=== PATIENT | female | born 1940 | race Caucasian/White ===

== ENCOUNTER → 2020-09-03 | Outpatient (CLI) | payer OTHER | LOC: HYPER 08:19 | PROVIDERS: ATTEND Internal Medicine | DX: S61.202A Unspecified open wound of right middle finger without damage to nail, initial encounter (principal); L03.011 Cellulitis of right finger; A49.01 Methicillin susceptible Staphylococcus aureus infection, unspecified site; R60.0 Localized edema; E11.628 Type 2 diabetes mellitus with other skin complications; E11.22 Type 2 diabetes mellitus with diabetic chronic kidney disease; I13.0 Hypertensive heart and chronic kidney disease with heart failure and stage 1 through stage 4 chronic kidney disease, or unspecified chronic kidney disease; N18.9 Chronic kidney disease, unspecified; I50.9 Heart failure, unspecified; R78.81 Bacteremia; I25.10 Atherosclerotic heart disease of native coronary artery without angina pectoris; I27.21 Secondary pulmonary arterial hypertension; Z79.4 Long term (current) use of insulin; Z86.73 Personal history of transient ischemic attack (TIA), and cerebral infarction without residual deficits; X58.XXXA Exposure to other specified factors, initial encounter; Y93.89 Activity, other specified; Y92.89 Other specified places as the place of occurrence of the external cause; Y99.8 Other external cause status ==

== ENCOUNTER → 2020-09-09 | Outpatient (CLI) | payer OTHER ==
[~2020-09-09] MED LIST: CELEXA 10 MG TA10 M1 PO; DOXEPIN 10 MG C10 M1 PO; FUROSEMIDE 20 M20 M1 PO; HAIR SKIN NAIL1 EACH PO; LEVEMIR100 UNIT/1 SUBQ; LOSARTAN POTASS50 MG PO; NORVASC 2.5 MG2.5 M1 PO; OXYBUTYNIN CHLO10 MG PO; PRAMIPEXOLE0.125 MG PO; ROSUVASTATIN CAL5 MG PO
== END ==
LOC: LAB 07:43
PROVIDERS: ATTEND Orthopaedic Surgery Hand Surgery
DX: Z12.31 Encounter for screening mammogram for malignant neoplasm of breast (principal)

== ENCOUNTER 2020-09-12 09:39 | Day surgery (SDC) | payer OTHER ==
[~2020-09-12] VITALS: Ht 152.4 cm; Wt 72.6 kg
--- NOTE | ~2020-09-12 | O ---
[facility] [place] [address] OPERATIVE REPORT Name: KRISTY MATTSON Room #: 150-3 [facility]..#: [id number] Admission: 09/12/20 Attend Phys: Aurea Saini, Discharge: Date of : 42 Report #: [id number] THIS REPORT FOR: cc: Jasper Puga MD, Ted J. MD Deardorff, Valerie A. 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 PROCEDURE PERFORMED: Right long finger incision and debridement of skin, subcutaneous tissue, and bone with wound repair and nail excision. SURGEON: Aurea Saini MD ANESTHESIA: General mask anesthesia. ESTIMATED BLOOD LOSS: Minimal. TOURNIQUET TIME: On the forearm was 14 minutes. COMPLICATIONS: None. CONDITION: Stable. DISPOSITION: Recovery room. INDICATIONS: The patient is a 80-year-old female with the above-mentioned diagnosis. She elects for operative treatment. The risks, benefits, alternatives, and complications were discussed including, but not limited to, infection, damage to vessels or nerves, incomplete relief or worsening of any symptoms, and inability to completely resolve the infection requiring more surgery. We also discussed possibility of abnormal nail growth causing pain and possibly requiring more surgery, infection, wound healing problems, or pain were also discussed. Her was at the bedside and they discussed that if intraoperative findings show a significant amount of infection and if my recommendation would be strongly for amputation, that I would call them intraoperatively. This obviously was not the case. Informed consent was obtained. The correct extremity was identified and labeled by myself after verbal confirmation of the patient as well as visual confirmation and signed informed consent. DESCRIPTION OF PROCEDURE: The patient was brought back to the operating room [address] [address] OPERATIVE REPORT Name: KRISTY MATTSON Room #: 150-3 [facility].#: [id number] Admission: 09/12/20 Attend Phys: Aurea Saini, Discharge: Date of : 41 Report #: [id number] and placed on the operating table in the supine position. She received antibiotics after the tourniquet was deflated. The right upper extremity was sterilely prepped and draped in the usual fashion. Final timeout was taken to verify correct patient, operative procedure, and operative site, all concurred. The arm was elevated, but was not exsanguinated, and the tourniquet was inflated. Next, a transverse incision was made at the volar aspect of the eschar. There was a large eschar at the distal end of the nail measuring approximately 5 mm x 1 cm. It was excised. Once this was excised, I was able to dissect down to the bone sharply. The bone looked to be in fairly good condition. A rongeur was used to clean up any rough edges and any unhealthy tissue was debrided as well. At this point, I evaluated the ability to close the wound without excision of the nail tissue. It would have been very difficult to close the wound. There would have been significant tension on the wound, which would have potentially decreased healing. So, sharply, the nail tissue was excised. The wound was then thoroughly irrigated with antibiotic saline prior to performing this swab and tissue was sent to microbiology. Once the wound was thoroughly irrigated, the wound was closed with 4-0 nylon suture. The tourniquet was deflated. The finger was pink with brisk capillary refill. The wound was dressed with Xeroform and sterile gauze. All fingers were pink with brisk capillary refill at the conclusion of case after deflation of tourniquet. All sponge and needle counts were correct. The patient was transferred to postoperative recovery room in stable condition. By: 1507 1528 Aurea Saini MD /cristy
--- NOTE | 2020-09-12 10:56 | NUR ---
CONSULTED TO PLACE A PICC FOR A PATIENT- PRE-OP. A CONSENT WAS OBTAINED AFTER A DISCUSSION OF RISK VS BENIFITS AND SHE VERBALIZED UNDERSTANDING. THE RIGHT UPPER ARM BASILIC WAS WIDLEY PATIENT. A #4F SINGLE LUMEN PICC WAS PLACED PER HOSPITAL POLICY AFTER A BEDSIDE TIMEOUT WAS COMPLETED. THE VEIN VS CATHETER RATIO WAS 24%. THE LINE WAS TRIMMED TO 42CM AND ADVANCED WITHOUT DIFFICULTY. LINE WAS CONFIRMED AT THE CAVOATRIAL JUNCTION USING SHERLOCK 3CG TECHNOLOGY, DOCUMENTED AND PLACED ON THE CHART. LINE WAS RELEASED FOR IMMEDIATE USE
[2020-09-12 11:02] VITALS: BP 142/86
[2020-09-12 11:18] LABS: HEMATOCRIT 36.4 % (37.0-47.0); HEMOGLOBIN 12.2 gm/dL (12.0-15.0); MCH 28.9 pg (26.0-34.0); MCHC 33.4 g/dL (28.0-37.0); MCV 86.5 fL (80.0-100.0); RBC 4.21 mil/uL (4.20-5.00); RDW 14.7 % (10.5-14.5); WBC 5.3 thou/uL (4.0-11.0)
[2020-09-12 11:23] LABS: CALCIUM 9.6 mg/dL (8.5-10.1); CREATININE 1.3 mg/dL (0.6-1.0); POTASSIUM 3.8 mmol/L (3.5-5.1)
[2020-09-12 11:30] LABS: ALBUMIN 3.5 g/dL (3.4-5.0); TOTAL BILIRUBIN 0.7 mg/dL (0.2-1.0); TOTAL PROTEIN 7.1 g/dL (6.4-8.2)
[2020-09-12 14:44] VITALS: BP 142/86
== END 2020-09-12 17:05 | disposition home or self-care (01) ==
LOC: TBA 09:39 → OR 09:39 → TBA 10:08 → OR 10:38
PROVIDERS: ATTEND Orthopaedic Surgery Hand Surgery
DX: E11.69 Type 2 diabetes mellitus with other specified complication (principal); M86.8X4 Other osteomyelitis, hand; M79.644 Pain in right finger(s); M79.89 Other specified soft tissue disorders; I10 Essential (primary) hypertension; E78.5 Hyperlipidemia, unspecified; F32.9 Major depressive disorder, single episode, unspecified; Z98.890 Other specified postprocedural states; Z79.899 Other long term (current) drug therapy; Z79.4 Long term (current) use of insulin; Z86.73 Personal history of transient ischemic attack (TIA), and cerebral infarction without residual deficits
CPT/HCPCS: 27000; 50010; 50101; 50386; 56526; 57006; 57091; 57178; 62110; 62900; 70005

== ENCOUNTER → 2021-02-07 | Outpatient (CLI) | payer OTHER ==
[~2021-02-07] MED LIST changes: +APAP650 PO; +BIOTIN1 M1 PO; +LANTUS100 UNIT/M SUBQ; +LONG ACTING NAS15 ML NASAL; +LOOMIS ENZYMES PO
[2021-02-07 09:34] LABS: PROTIME 10.9 Seconds (10.5-12.1)
[2021-02-07 09:34] LABS: URINE BILIRUBIN NEGATIVE (Negative); URINE BLOOD TRACE (Negative); URINE CLARITY CLEAR; URINE COLOR YELLOW; URINE GLUCOSE-RANDOM* NEGATIVE (Negative); URINE KETONES NEGATIVE (Negative); URINE NITRITE-REFLEX NEGATIVE (Negative); URINE PROTEIN (DIPSTICK) TRACE (Negative); URINE SPECIFIC GRAVITY <= 1.005 (1.005-1.035); URINE UROBILINOGEN 0.2 E.U./dl (0.2-1.0)
[2021-02-07 09:37] LABS: URINE LEUKOCYTES-REFLEX 3+ (Negative)
[2021-02-07 09:56] LABS: SQUAMOUS 4-10 Moderate /LPF (0-3)
[2021-02-07 09:57] LABS: CASTS None Seen /LPF (None Seen); RENAL EPITHELIAL CELLS 0-3 Few /LPF (None Seen)
[2021-02-07 09:58] LABS: BACTERIA-REFLEX 1-9 Few /HPF (None Seen); CRYSTALS None Seen /LPF (None Seen); URINE RBC 1-2 Rare /HPF (NONE SEEN)
--- NOTE | 2021-02-07 16:11 | EKG ---
[place] [address] [facility] [place] [address] ELECTROCARDIOGRAM REPORT Name: KRISTY MATTSON Room #: [facility]#: [id number] Admission: 02/07/21 Attend Phys: Agus Phillips MD Discharge: Date of : 41 Report #: [id number] [facility] Test Date: 2021-02-07 Test Time: 09:13:45 Pat Name: KRISTY MATTSON Department: Room: Gender: F Route Salesman And Driver: JUAN ALBERTO BURLESON : 1940 Requested By: Agus Phillips Order Number: [id number] MD: Giovanni Escobedo Measurements Intervals [place] Rate: 45 P: [place]: QRS: 134 QRSD: 182 T: -24 QT: 487 QTc: 422 Interpretive Statements Junctional rhythm RBBB Repol abnrm suggests ischemia, diffuse leads No previous ECG available for comparison Electronically Signed On 02-07-2021 16:11:26 CDT by Giovanni Escobedo [email or web address] <ELECTRONICALLY SIGNED> By: Giovanni Escobedo MD, [facility] 02/07/21 1611 0913 2 Giovanni Escobedo MD, FACPhoenix /EPI
== END ==
LOC: PAC 08:39
PROVIDERS: ATTEND Orthopaedic Surgery
DX: Z01.812 Encounter for preprocedural laboratory examination (principal); Z01.810 Encounter for preprocedural cardiovascular examination; M17.12 Unilateral primary osteoarthritis, left knee; E11.9 Type 2 diabetes mellitus without complications; I10 Essential (primary) hypertension; Z91.048 Other nonmedicinal substance allergy status

== ENCOUNTER → 2021-02-19 | Outpatient (CLI) | payer OTHER ==
--- NOTE | 2021-02-21 11:48 | HC ---
[facility] [place] [address] CONSULTATION Name: KRISTY MATTSON Room #: REG SATYA Zepeda#: [id number] Admission: 02/19/21 Attend Phys: Jen Banks DO Discharge: Date of : 41 Report #: [id number] THIS REPORT FOR: cc: Jasper Puga MD, Ted J. MD Lundgren, Craig H. MD [facility] ~ DATE OF SERVICE: 02/19/2021 REASON FOR CONSULTATION: Junctional rhythm. HISTORY OF PRESENT ILLNESS: The patient is a 80-year-old woman with hypertension and diabetes, who presents for elective left total knee replacement. She was found to be bradycardic in the postoperative setting and I have been asked to see her in this regard. She denies a prior cardiac history. No history of chest pain, pressure or heart failure symptoms. Interestingly, an EKG performed on 02/07/2021 in the preoperative setting demonstrated the same junctional rhythm with a right bundle-branch block and right posterior fascicular block. She has not been told of having specific conduction system problems or issues. There is an echocardiogram from [facility], the report of which I have reviewed that demonstrated normal left ventricular systolic function with moderate LVH. The mitral valve demonstrated mild to moderate stenosis. She tells me that this echocardiogram was done due to an infection. 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 This echocardiogram also suggested the possibility of a mitral valve vegetation on the posterior leaflet. 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 ALLERGIES: SHE IS ALLERGIC TO HYDROCHLOROTHIAZIDE. MEDICATIONS: Include amlodipine 2.5 mg daily, citalopram 10 mg daily, doxepin 10 mg at night, furosemide 20 mg daily, insulin 12.5 units at night, losartan 50 mg daily, oxybutynin, rosuvastatin 5 mg daily. PAST MEDICAL HISTORY: Past history and medical records have been reviewed and include a history of hypertension, diabetes, prior TIA in 1999, stroke in 2003, right finger infection 05/2020, mild chronic kidney disease, dyslipidemia. SOCIAL HISTORY: She is nonsmoker, nondrinker. FAMILY HISTORY: Unremarkable for premature coronary artery disease. REVIEW OF SYSTEMS: All systems negative except as that noted above. [address] [address] CONSULTATION Name: KRISTY MATTSON Room #: REG CLHeike AlexPravin#: [id number] Admission: 02/19/21 Attend Phys: Jen Banks DO Discharge: Date of : 41 Report #: [id number] PHYSICAL EXAMINATION: GENERAL: This is a pleasant elderly woman in no distress. VITAL SIGNS: Blood pressure is 107/80, heart rate of 45 and regular. She is afebrile. HEENT: There are neither xanthelasma, subcutaneous xanthomata, oral mucosal or digital cyanosis or kyphoscoliosis present. CHEST: Clear to auscultation and percussion. CARDIAC: Regular rate and rhythm with normal S1 and S2. There is 1-2/6 systolic murmur at the left sternal border. ABDOMEN: Soft and nontender. EXTREMITIES: Without cyanosis, clubbing or edema. Radial pulses are 2+. NEUROLOGIC: She is alert with a nonfocal exam. LABORATORY DATA: Sodium 144, potassium 3.8, creatinine 1.3, this is from 09/2020. White count 5.3, hemoglobin 12, hematocrit 36, platelet count 134. ASSESSMENT AND PLAN: 1. Junctional bradycardia, clinically asymptomatic. 2. Recent left total knee replacement. 3. Diabetes. 4. Hypertension. 5. Dyslipidemia. 6. Prior transient ischemic attack; stroke. RECOMMENDATIONS: 1. Thyroid function studies. 2. No specific treatment is needed for asymptomatic junctional bradycardia, this was identified preoperatively. 3. Thyroid function studies, which has been ordered. 4. Consider outpatient event recorder monitoring. Further thoughts and plans will be forthcoming based on this evaluation. Thank you for asking me to participate in her care. <ELECTRONICALLY SIGNED> By: Marcello Gooden MD, [facility] 02/21/21 1148 1643 9080 Marcello Gooden MD, FAC /nt
== END ==
LOC: LAB 11:33
PROVIDERS: ATTEND Student in an Organized Health Care Education/Training Program
DX: Z01.812 Encounter for preprocedural laboratory examination (principal); Z20.822 Contact with and (suspected) exposure to COVID-19

== ENCOUNTER 2021-02-20 06:23 | Inpatient (IN) | payer OTHER ==
[~2021-02-20] VITALS: Ht 149.9 cm; Wt 71.8 kg
[2021-02-20 07:20] VITALS: BP 136/57
[2021-02-20 14:41] VITALS: BP 135/58
[2021-02-20 16:30] VITALS: BP 107/87
[2021-02-20 17:30] VITALS: BP 107/87
[2021-02-20 19:09] LABS: ALBUMIN 3.4 g/dL (3.4-5.0); CALCIUM 9.4 mg/dL (8.5-10.1); CREATININE 1.8 mg/dL (0.6-1.0); MAGNESIUM 1.7 mg/dL (1.8-2.4); POTASSIUM 4.7 mmol/L (3.5-5.1); TOTAL BILIRUBIN 0.3 mg/dL (0.2-1.0); TOTAL PROTEIN 6.9 g/dL (6.4-8.2)
[2021-02-20 20:08] VITALS: BP 110/68
[2021-02-20 23:58] VITALS: BP 110/47
[2021-02-21 02:37] LABS: HEMATOCRIT 36.4 % (37.0-47.0); HEMOGLOBIN 12.2 gm/dL (12.0-15.0); MCH 28.2 pg (26.0-34.0); MCHC 33.4 g/dL (28.0-37.0); MCV 84.6 fL (80.0-100.0); RBC 4.31 mil/uL (4.20-5.00); RDW 15.2 % (10.5-14.5); WBC 11.4 thou/uL (4.0-11.0)
[2021-02-21 03:08] LABS: CALCIUM 9.1 mg/dL (8.5-10.1); CREATININE 2.1 mg/dL (0.6-1.0); POTASSIUM 5.1 mmol/L (3.5-5.1)
[2021-02-21 04:00] VITALS: BP 108/43
[2021-02-21 07:30] VITALS: BP 100/41
--- NOTE | 2021-02-21 09:22 | EKG ---
[address] [place] [employer] [place] [address] ELECTROCARDIOGRAM REPORT Name: KRISTY MATTSON Room #: 217-P ADM IN M.R.#: [id number] Admission: 02/20/21 Attend Phys: Agus Phillips MD Discharge: Date of : 41 Report #: [id number] [facility] Test Date: 2021-02-20 Test Time: 16:54:29 Pat Name: KRISTY MATTSON Department: Room: 217 P Gender: F Assistant Secretary: FSCHWALMICHELLE : 1940 Requested By: Sophie Interiano Order Number: [id number] MD: Humza Guerrero Measurements Intervals [place] Rate: 40 P: [place]: QRS: 137 QRSD: 160 T: -40 QT: 537 QTc: 438 Interpretive Statements Junctional rhythm RBBB and LPFB Compared to ECG 02/07/2021 09:13:45 No significant change Electronically Signed On 02-21-2021 9:22:24 CDT by Humza Guerrero [email or web address] <ELECTRONICALLY SIGNED> By: Humza Guerrero MD 02/21/21921 1654 1654 Humza Guerrero MD /SAVANNA
[2021-02-21 11:40] VITALS: BP 121/47
[2021-02-21 15:40] VITALS: BP 129/44
[2021-02-21 19:50] VITALS: BP 129/67
[2021-02-22 04:16] VITALS: BP 146/60
[2021-02-22 04:19] LABS: HEMATOCRIT 33.4 % (37.0-47.0); HEMOGLOBIN 11.3 gm/dL (12.0-15.0); MCH 28.7 pg (26.0-34.0); MCHC 33.8 g/dL (28.0-37.0); MCV 84.8 fL (80.0-100.0); RBC 3.93 mil/uL (4.20-5.00); RDW 14.9 % (10.5-14.5); WBC 9.3 thou/uL (4.0-11.0)
[2021-02-22 04:44] LABS: CALCIUM 8.8 mg/dL (8.5-10.1); CREATININE 1.9 mg/dL (0.6-1.0); PHOSPHORUS 3.6 mg/dL (2.5-4.9); POTASSIUM 4.3 mmol/L (3.5-5.1)
[2021-02-22 08:30] VITALS: BP 133/55
[2021-02-22 20:50] VITALS: BP 151/53
[2021-02-23 04:46] VITALS: BP 165/81
[2021-02-23 08:50] VITALS: BP 121/60; BP 1221/60
[2021-02-23 12:20] VITALS: BP 143/56
[2021-02-23 16:30] VITALS: BP 167/71
[2021-02-23 19:55] VITALS: BP 157/52
[2021-02-24 04:41] VITALS: BP 132/47
[2021-02-24 08:00] VITALS: BP 154/62
[2021-02-24] MEDS ORDERED: AUGMENTIN 500-1 EACH PO (09:00)
[2021-02-24] MEDS ORDERED: TRI-BUFFERED A325 M1 PO (09:01)
[2021-02-24] MEDS ORDERED: SENOKOT-S1 TA2 PO (09:02)
[2021-02-24 12:00] VITALS: BP 152/58
[2021-02-24 16:00] VITALS: BP 154/57
[2021-02-24 17:14] VITALS: BP 152/58
--- NOTE | 2021-03-03 15:19 | O ---
[facility] [place] [address] OPERATIVE REPORT Name: KRISTY MATTSON Room #: 217-P [facility] IN M.R.#: [id number] Admission: 02/20/21 Attend Phys: Agus Phillips MD Discharge: 02/24/21 Date of : 41 Report #: [id number] THIS REPORT FOR: cc: Jaspre Puga MD, Ted J. MD Abraham,Agus Steve MD ~ DATE OF SERVICE: 02/20/2021 DATE OF SURGERY: 02/20/2021 PREOPERATIVE DIAGNOSIS: Left knee osteoarthritis. POSTOPERATIVE DIAGNOSIS: Left knee osteoarthritis. PROCEDURE: Left total knee arthroplasty using Navio robotic assistance. SURGEON: Agus Phillips MD. SLASHER TENDER HELPER: Jeniffer Benites PA-C. INDICATION FOR SLASHER TENDER HELPER: Throughout the case, extensive retraction, manipulation of the knee was required. This was afforded to me by my pharmaceutical assistant. ANESTHESIA: LMA with adductor canal block. IMPLANTS: [employer]non [employer] Nephew size 3 Journey II BCS cobalt chrome femur, size 2 tibia, size 9 constrained polyethylene and size 29 patella. TOURNIQUET TIME: 53 minutes. ESTIMATED BLOOD LOSS: 25 mL COMPLICATIONS: None. SPECIMENS: None. CONDITION UPON LEAVING THE OR: Stable. INDICATIONS FOR PROCEDURE: The patient is a 80-year-old female with severe left knee osteoarthritis. She had failed conservative measures for this and after discussion with her, she elected for left total knee arthroplasty. DESCRIPTION OF PROCEDURE: Risks, benefits, alternatives, complications were discussed in detail with the patient including but not limited to risk of anesthesia, risk of damage to nerves, arteries, blood vessels, risk for infection, bleeding, risk for DVT, PE, and need for reoperation. Informed [facility] [address] [place] [address] OPERATIVE REPORT Name: KRISTY MATTSON Room #: 217-P [facility] IN ..#: [id number] Admission: 02/20/21 Attend Phys: Agus Phillips MD Discharge: 02/24/21 Date of : 41 Report #: [id number] consent was obtained from the patient. The left knee was appropriately marked in the preoperative holding area. IV Ancef was given for preoperative antibiotics. Adductor canal block was placed by anesthesia. She was brought to the operating room and placed in supine position on the operating table. LMA anesthesia was induced without complication. Tourniquet was placed on the left thigh. Left lower extremity was prepped and draped in normal sterile fashion. Timeout was performed properly identifying the patient and procedure as well as instrumentation and implants. All in the operating room was in agreement. Left lower extremity was exsanguinated, tourniquet was inflated. Tourniquet time was 53 minutes. Standard midline approach to knee was made with 10 blade through the skin. Dissection was taken down sharply to the fascia and deep flaps were developed medially and laterally. Fresh 10 blade was used to make a medial parapatellar arthrotomy and the knee was inspected. There was severe tricompartmental osteoarthritis. ACL and PCL were removed sharply. Reference pins were placed in the femur and the tibia. The knee was digitally mapped using the [employer] robotic system. Intraoperative plan was made. We sized the size 3 femur, size 2 tibia and a 10 spacer. After acceptance of the intraoperative plan, the distal femoral cut was made with Navio bur. Distal femoral cutting block was pinned in place and chamfer cuts were made. Attention was turned to the tibia. Remainder of the menisci removed with Bovie cautery. Tibial resection guide was pinned in place using Navio for placement. Tibial resection was made. Flexion and extension gaps were checked and found to be tight medially in extension. Medial osteophyte was removed from the tibia and a limited medial release was performed using the pie crust technique and this balanced the knee well. Tibia sized, found to be a size 2. Size 2 tibial trial was placed, pinned and punched. Size 3 femoral trial was placed and box cut was made. This was then trialed with a size 9 polyethylene. Size 9 polyethylene demonstrated good balance medially throughout range of motion of the knee laterally. There was laxity and deep flexion up to 3-4 mm was felt we can make up for this with a constrained implant, 9 mm of bone was resected from the posterior surface of the patella and a size 29 patellar trial button was placed. Knee was taken through range of motion, found to be stable, found to have good patellar tracking. Trial components were removed. Bone ends were thoroughly irrigated with normal saline. Final size 2, tibia size 3 Journey II BCS cobalt chrome femur and a size 29 patella were cemented in place using standard cementation techniques. While the cement cured, a periarticular injection consisting of morphine, ropivacaine, epinephrine, Toradol was placed around the knee joint capsule. After the cement cured, tourniquet was deflated. Hemostasis was obtained with Bovie cautery. A final size 9 constrained polyethylene was placed. A gram of vancomycin was placed deep in the joint. The fascia was closed with 0 Vicryl. Skin was closed with 2-0 Vicryl. Skin [address] [address] OPERATIVE REPORT Name: KRISTY MATTSON Room #: 217-P DIS IN M.Tommy.#: [id number] Admission: 02/20/21 Attend Phys: Agus Phillips MD Discharge: 02/24/21 Date of : 41 Report #: [id number] staple and a SALVATORE dressing was applied. The patient tolerated this procedure well and went to the recovery room under the care of anesthesia postoperatively. <ELECTRONICALLY SIGNED> By: Agus Phillips MD 03/03/21 1519 1058 1153 Agus Phillips MD /nt
--- NOTE | 2021-03-04 11:04 | HC ---
[facility] [place] [address] CONSULTATION Name: KRISTY MATTSON Room #: 217-P [facility] IN M.R.#: [id number] Admission: 02/20/21 Attend Phys: Agus Phillips MD Discharge: 02/24/21 Date of : 41 Report #: [id number] THIS REPORT FOR: cc: Jasper Puga MD, Ted J. MD Smithson, David G. MD ~ DATE OF SERVICE: 02/24/2021 HISTORY OF PRESENT ILLNESS: The patient is a 80-year-old white female, who underwent an elective left total knee arthroplasty. She had bradycardia in the postoperative period and Cardiology has been involved. She has been noted to have junctional bradycardia. She also had respiratory failure postop. There was a question of aspiration pneumonia. She went down and had a video swallow study earlier today and per speech therapy is allowed mechanical soft, thin liquid diet. The patient's total knee replacement was on 01/20/2021. We are seeing her in rehabilitation medicine consultation. PAST MEDICAL HISTORY: TIA in 1999, and CVA in 2003. She had a right finger infection in 1999. History of mild chronic kidney disease, elevated lipids, insulin-dependent diabetes mellitus. MEDICATIONS: Please see the medication listing. ALLERGIES: HYDROCHLOROTHIAZIDE. SOCIAL HISTORY: Lives in a house with her , 2 steps and used a quad cane, has a roller walker. Daughter is currently visiting from [place]. REVIEW OF SYSTEMS: Did not offer any current complaints of chest pain, shortness of breath or abdominal discomfort. PHYSICAL EXAMINATION: GENERAL: A 80-year-old white female in no obvious distress. VITAL SIGNS: Temperature 36.3, pulse 60, respirations 18, blood pressure 132/47. NEUROLOGIC: The patient is alert. She is oriented. HEENT: Appeared to be benign. Cranial nerves are grossly intact. EXTREMITIES: Functional range of motion of both upper extremities without obvious focal weakness. Functional range of motion of the right lower extremity without obvious focal weakness. Her left knee is dressed. She has an ice pack in place. No focal calf swelling. She can dorsiflex the left ankle. Functionally, she is standby assistance; sit to stand and is ambulating 300 feet, standby assistance with a front wheeled walker. Note that stairs are to be done per physical therapy. ASSESSMENT: A 80-year-old white female with the following problem list: [address] [address] CONSULTATION Name: TWILAKRISTY H Room #: 217-P [facility] IN ..#: [id number] Admission: 02/20/21 Attend Phys: Agus Phillips MD Discharge: 02/24/21 Date of : 41 Report #: [id number] 1. Left total knee arthroplasty, 02/20/2021. 2. Bradycardia in the postop period, noted to be junctional bradycardia. 3. Respiratory failure that appears to have resolved. 4. Concern for aspiration pneumonia. She underwent video swallow study and is now on mechanical soft, thin liquids after being on thickened liquids prior. 5. History of Insulin-dependent diabetes mellitus. 6. Mild chronic kidney disease. 7. History of elevated lipids. PLAN: The patient is too high level to warrant an acute 5-North inpatient rehabilitation stay. Family were wondering regarding options for her and I discussed with the patient's daughter and . Case management to look over options for them within the insurance coverage. I had a discussion regarding potential senior living facility options versus other options, possibly including home health care. Discussed how she would need medical clearance including from Cardiology prior to moving to the next level of care. <ELECTRONICALLY SIGNED> By: Bhaskar Wiseman MD 03/04/21 1104 0931 1120 Bhaskar Wiseman MD /nt
== END 2021-02-24 18:42 | disposition home health service (06) | DRG 469 ==
LOC: PRE → OR 06:23 → TBA 06:30 → PRE 08:47 → OR 09:40 → TBA 09:41 → 2N 09:41 → PRE 10:49 → 4S 11:02 → TBA 12:01 → PRE 14:05 → 2N 14:37 → EDSTATUS 16:17 → OR 16:20 → 2N 02-24 18:42
PROVIDERS: Hospitalist; ADMIT Orthopaedic Surgery; ATTEND Orthopaedic Surgery
PROC: 0SRD0J9 Replacement of Left Knee Joint with Synthetic Substitute, Cemented, Open Approach (ICD-10-PCS; principal; 2021-02-20)
PROC: 8E0Y0CZ Robotic Assisted Procedure of Lower Extremity, Open Approach (ICD-10-PCS; principal; 2021-02-20)
DX: M17.12 Unilateral primary osteoarthritis, left knee (principal); J69.0 Pneumonitis due to inhalation of food and vomit; N17.0 Acute kidney failure with tubular necrosis; J96.00 Acute respiratory failure, unspecified whether with hypoxia or hypercapnia; J98.11 Atelectasis; N18.9 Chronic kidney disease, unspecified; E11.22 Type 2 diabetes mellitus with diabetic chronic kidney disease; E78.5 Hyperlipidemia, unspecified; G25.81 Restless legs syndrome; F32.9 Major depressive disorder, single episode, unspecified; Y83.8 Other surgical procedures as the cause of abnormal reaction of the patient, or of later complication, without mention of misadventure at the time of the procedure; K59.00 Constipation, unspecified; Y82.8 Other medical devices associated with adverse incidents; I05.0 Rheumatic mitral stenosis; M10.9 Gout, unspecified; E78.00 Pure hypercholesterolemia, unspecified; I12.9 Hypertensive chronic kidney disease with stage 1 through stage 4 chronic kidney disease, or unspecified chronic kidney disease; E11.649 Type 2 diabetes mellitus with hypoglycemia without coma; Z86.73 Personal history of transient ischemic attack (TIA), and cerebral infarction without residual deficits; Z79.4 Long term (current) use of insulin; Z88.6 Allergy status to analgesic agent; Z79.899 Other long term (current) drug therapy; Z83.3 Family history of diabetes mellitus; Z82.49 Family history of ischemic heart disease and other diseases of the circulatory system; Z82.3 Family history of stroke; Z82.61 Family history of arthritis; Z84.1 Family history of disorders of kidney and ureter; Z83.42 Family history of familial hypercholesterolemia; R00.1 Bradycardia, unspecified
CPT/HCPCS: 10081; 50010; 50101; 50415; 50954; 51130; 51225; 51320; 51412; 53000; 53078; 56527; 56528; 57095; 57103; 57110; 57127; 57179; 58239; 62110; 62900; 64042; 70005

== ENCOUNTER → 2021-02-28 | Outpatient (CLI) | payer OTHER ==
[~2021-02-28] MED LIST changes: +AUGMENTIN 500-1 EACH PO; +SENOKOT-S1 TA2 PO; +TRI-BUFFERED A325 M1 PO
== END ==
LOC: SJCVC 13:08
PROVIDERS: ATTEND Internal Medicine
DX: R94.31 Abnormal electrocardiogram [ECG] [EKG] (principal); I45.2 Bifascicular block; R00.1 Bradycardia, unspecified; I10 Essential (primary) hypertension; E78.5 Hyperlipidemia, unspecified; I05.9 Rheumatic mitral valve disease, unspecified; E11.9 Type 2 diabetes mellitus without complications; Z96.652 Presence of left artificial knee joint; Z79.899 Other long term (current) drug therapy

== ENCOUNTER → 2021-05-26 | Outpatient (CLI) | payer OTHER | LOC: SJCVC 09:57 | PROVIDERS: ATTEND Internal Medicine | DX: R94.31 Abnormal electrocardiogram [ECG] [EKG] (principal); I45.2 Bifascicular block; R00.1 Bradycardia, unspecified; E78.5 Hyperlipidemia, unspecified; I13.0 Hypertensive heart and chronic kidney disease with heart failure and stage 1 through stage 4 chronic kidney disease, or unspecified chronic kidney disease; I50.32 Chronic diastolic (congestive) heart failure; N18.9 Chronic kidney disease, unspecified; E11.22 Type 2 diabetes mellitus with diabetic chronic kidney disease; I05.9 Rheumatic mitral valve disease, unspecified; E11.9 Type 2 diabetes mellitus without complications; I27.21 Secondary pulmonary arterial hypertension; Z88.8 Allergy status to other drugs, medicaments and biological substances; Z79.82 Long term (current) use of aspirin; Z79.4 Long term (current) use of insulin; Z79.899 Other long term (current) drug therapy ==

== ENCOUNTER → 2021-07-02 | Outpatient (CLI) | payer OTHER | LOC: SJCVCIMAG 08:46 | PROVIDERS: ATTEND Internal Medicine | DX: I08.8 Other rheumatic multiple valve diseases (principal); I49.3 Ventricular premature depolarization; I45.2 Bifascicular block; R94.31 Abnormal electrocardiogram [ECG] [EKG]; E11.22 Type 2 diabetes mellitus with diabetic chronic kidney disease; I13.0 Hypertensive heart and chronic kidney disease with heart failure and stage 1 through stage 4 chronic kidney disease, or unspecified chronic kidney disease; N18.9 Chronic kidney disease, unspecified; I50.32 Chronic diastolic (congestive) heart failure; E78.5 Hyperlipidemia, unspecified; Z95.0 Presence of cardiac pacemaker; Z88.8 Allergy status to other drugs, medicaments and biological substances; Z79.899 Other long term (current) drug therapy; Z79.4 Long term (current) use of insulin; Z79.82 Long term (current) use of aspirin; Z86.73 Personal history of transient ischemic attack (TIA), and cerebral infarction without residual deficits ==